=== PATIENT | female | born 1940 | race Native Hawaiian/Other Pacific Islander ===

== ENCOUNTER 2016-09-24 08:40 | Outpatient (CLI) | payer OTHER ==
[~2016-09-24] VITALS: Ht 152.4 cm; Wt 52.6 kg
[2016-09-24 08:55] VITALS: BP 128/60; TEMP 97.7
== END 2016-09-24 19:04 | disposition home or self-care (01) ==
LOC: INF 08:40
DX: M81.0 Age-related osteoporosis without current pathological fracture (principal)
CPT/HCPCS: 36415; 82310; 96372; J0897

== ENCOUNTER 2017-03-26 08:33 | Outpatient (CLI) | payer OTHER ==
[~2017-03-26] VITALS: Ht 152.4 cm; Wt 52.6 kg
== END 2017-03-26 21:32 | disposition home or self-care (01) ==
LOC: INF 08:33
DX: M81.0 Age-related osteoporosis without current pathological fracture (principal)
CPT/HCPCS: 36415; 82310; 96372; J0897

== ENCOUNTER 2017-10-18 13:59 | Outpatient (CLI) | payer OTHER | END 2017-10-18 20:24 | disposition home or self-care (01) | LOC: INF 13:59 | DX: M81.0 Age-related osteoporosis without current pathological fracture (principal) | CPT/HCPCS: 36415; 82310 ==

== ENCOUNTER 2018-09-15 08:46 | Outpatient (CLI) | payer OTHER ==
[~2018-09-15] VITALS: Ht 152.4 cm; Wt 65.3 kg
[2018-09-15 09:46] VITALS: BP 117/56; TEMP 97.7
== END 2018-09-15 20:28 | disposition home or self-care (01) ==
LOC: INF 08:46
DX: M81.0 Age-related osteoporosis without current pathological fracture (principal)
CPT/HCPCS: 36415; 82310; 96372; J0897